=== PATIENT | female | born 1990 | race Caucasian/White ===

== ENCOUNTER 2018-09-27 19:29 | Emergency (ER) | payer OTHER ==
[~2018-09-27] VITALS: Ht 165.1 cm; Wt 120.2 kg
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
--- NOTE | 2018-09-27 19:57 | NUR ---
PA TO BEDSIDE. AWAITING ORDERS AT THIS TIME
[2018-09-27] MEDS ORDERED: ACETAMINOPHEN 325 MG TABLET PO ONE (20:00)
[2018-09-27] MEDS ORDERED: KETOROLAC 30 MG/1 ML IM ONE (20:00)
[2018-09-27] MEDS ORDERED: ACETAMINOPHEN 325 MG TABLET ONE (20:06)
[2018-09-27] MEDS ORDERED: KETOROLAC 30 MG/1 ML ONE (20:06)
--- NOTE | 2018-09-27 20:16 | NUR ---
PT TAKEN TO IMAGING
--- NOTE | 2018-09-27 20:23 | NUR ---
PT BACK FROM XRAY, MEDICATED FOR PAIN. PER TECH PT IS GOING TO NEED CT. AWAITING FURTHER ORDERS AT THIS TIME. CALL LIGHT WITHIN REACH
--- NOTE | 2018-09-27 20:30 | NUR ---
NEW ORDERS RECEIVED FOR CT, AWAITING TESTING AND RESULTS AT THIS TIME
--- NOTE | 2018-09-27 21:01 | NUR ---
TAKEN FOR CT
--- NOTE | 2018-09-27 21:10 | NUR ---
MD TO BEDSIDE TO RECHECK PT AND UPDATE ON POC.
[2018-09-27 21:30] VITALS: BP 137/61
== END 2018-09-27 21:32 | disposition home or self-care (01) ==
LOC: ED 21:26
DX: S16.1XXA Strain of muscle, fascia and tendon at neck level, initial encounter (principal); S09.8XXA Other specified injuries of head, initial encounter; R51 Headache; V49.49XA Driver injured in collision with other motor vehicles in traffic accident, initial encounter; Y93.89 Activity, other specified; Y92.410 Unspecified street and highway as the place of occurrence of the external cause; Y99.8 Other external cause status
CPT/HCPCS: 72020; 72125; 96372; 99284; J1885